=== PATIENT | male | born 1995 | race Caucasian/White ===

== ENCOUNTER 2019-05-31 10:48 | Day surgery (SDC) | payer MEDICAID, OTHER ==
[~2019-05-31 10:48] MED LIST: SODIUM CHLORIDE 0.9% 1000 ML 1,000 ML IV SCH
[2019-05-31] MEDS ORDERED: PROPOFOL 200 MG/20 ML VIAL IV ONE (12:18)
[2019-05-31] MEDS ORDERED: fentaNYL 100 MCG/2 ML INJ ONE (12:18)
--- NOTE | 2019-05-31 12:24 | Anesthesia Day of Surgery ---
Anesthesia Day of Surgery - Day of Surgery Patient Examined: Yes Patient H&P Reviewed: Yes Patient is NPO: Yes Beta Blockers: No Cardiac Clearance: No (n/a) Pulmonary Clearance: No (n/a) Kurt's Test: N/A
--- NOTE | 2019-05-31 12:31 | Anesthesia Consultation ---
Anesthesia Consult and Med Hx Date of service: 05/31/19 - Airway Anesthetic Teeth Evaluation: Good ROM Head & Neck: Adequate Mental/Hyoid Distance: Adequate Mallampati Class: Class I Intubation Access Assessment: Probably Good - Pulmonary Exam CTA: Yes - Cardiac Exam Cardiac Exam: RRR - Pre-Operative Health Status ASA Pre-Surgery Classification: ASA1 Proposed Anesthetic Plan: General
--- NOTE | 2019-05-31 13:21 | Procedure Note ---
Date of procedure: 05/31/19 Pre-op diagnosis: H/O Melena Post-op diagnosis: other (No active Upper GI bleeding noted/ No Peptic Ulcer Disease noted/ Mild to Moderate Erosive Esophagitis/Gastritis/R/O Celiac Disese/ R/O Eosinophilic Esophagitis) Procedure: EGD with Biopsy Anesthesia: [facility] [place] Surgeon: MALIHA MCKEON Estimated blood loss: minimal Pathology: list Specimen disposition: to lab Condition: stable Disposition: same day (Treat with PPI> Avoid aspirin and NSAID for 4 days; otherwise resume home medication. Follow up in 1 to 2 weeks ([phone]).)
--- NOTE | 2019-05-31 13:48 | Operative Report ---
PROCEDURE: Esophagogastroduodenoscopy with biopsy. INDICATIONS: The patient is a 24-year-old gentleman in otherwise good health, who had complained of some dark stools and some GERD symptoms that had prompted him to go to the Emergency Room. EGD was done to assess for any active source of upper GI bleeding and to assess for any peptic ulcer disease. DESCRIPTION OF PROCEDURE: Procedure was done after getting informed consent with MAC anesthesia. Instrument was passed through the hypopharynx into the esophagus, which showed some [id number] erosive esophagitis. Biopsy was done from the distal esophagus to assess for the severity of the erosive esophagitis as well as from the mid esophagus to assess for eosinophilic esophagitis. Stomach showed gastritis. No peptic ulcer disease was noted in the straight or the retroverted view. There was no evidence of any active GI bleeding noted within the gastric or the duodenal lumen. The pylorus was patent. The duodenum in the first and second portion appeared normal. Biopsy was done from the second part of the duodenum to rule out for celiac disease. Additional biopsy was done from the gastric antrum, gastric body and angular incisura to rule out for H. pylori and atrophic gastritis. There was minimal bleeding associated with the procedure. No complications associated with the procedure. ASSESSMENT: History of melena. No active upper GI bleeding noted. Mild to moderate erosive esophagitis, gastritis, no peptic ulcer disease noted, rule out celiac disease, rule out eosinophilic esophagitis. PLAN: To treat the patient with PPI, have the patient avoid aspirin and aspirin-related products for the next few days. Otherwise, resume the patient's previous medication. Follow up in the office in 1-2 weeks' time. Further treatment adjustment will be according to the biopsy findings with the patient as persistence of bleeding, then colonoscopy may also be done at a later date for further assessment. Procedure was done in the GI lab with assistance of the GI lab team, which included JENNY, Sandra Valencia; Nohemi santos and with assistance of anesthesia. JOB# [id number] [place]
[2019-05-31 13:49] VITALS: BP 128/79
--- NOTE | 2019-05-31 14:43 | Post Anesthesia Evaluation ---
- Post Anesthesia Evaluation Patient Participated: Yes Airway Patent: Yes Stable Respiratory Function: Yes Nausea/Vomiting: Yes Temp > 96.8F: Yes Pain Manageable: Yes Adequeate Hydration: Yes Anesthesia Complications: No Block Receding Appropriately: Not Applicable Patient on Ventilator: No
== END 2019-05-31 10:49 | disposition home or self-care (01) ==
LOC: GIO 10:48
DX: K21.0 Gastro-esophageal reflux disease with esophagitis (principal); K29.50 Unspecified chronic gastritis without bleeding; K92.1 Melena; K31.89 Other diseases of stomach and duodenum; Z79.899 Other long term (current) drug therapy
CPT/HCPCS: 43239; 88305; 88342; J2704; J3010; J7030